=== PATIENT | female | born 1960 | race Caucasian/White ===

== ENCOUNTER 2017-01-29 08:50 | Day surgery (SDC) | payer BC ==
--- OUTSIDE RECORDS SUMMARY | 2017-01-29 08:54 | XMS REPORT | Continuity of Care Document ---
:1960 Author Organization [facility] ([facility]) Address [address] [place] [address] Phone [phone] Care Team Providers Name Role Phone Catarino Pearson Primary Care Provider [phone] Source Comments This disclosure is being made pursuant to the Care Everywhere program, applicable federal and state laws, and may not contain all informaitonavailable regarding this patient.[facility] ([facility]) Active Allergies and Adverse Reactions Allergen Noted Date Severity Reactions Comments Iodinated Contrast Media - Oral And Iv Dye 08/06/2015 Unknown Metformin 08/06/2015 Unknown Penicillins 08/06/2015 Unknown Current Medications Prescription Sig. Disp. Refills Start Date End Date Status levothyroxine 75 mcg Take 75 mcg by Active tablet mouth daily glimepiride 4 mg tablet Take 4 mg by mouth Active Every morning cholecalciferol (VITAMIN Take 1,000 Units Active D3) 1,000 unit tablet by mouth daily HYDROcodone-acetaminophen Take 1 tablet by Active 7.5-325 mg per tablet mouth every 6 hours as needed Active Problems No known active problems Social History Tobacco Use Types Packs/Day Years Used Date Current Every Day Smoker Cigarettes 0.5 20 Smokeless Tobacco: Never Used Tobacco Cessation:Counseling Given: Yes Comments: Alcohol Use Drinks/Week oz/Week Comments Yes Last Filed Vital Signs Vital Sign Reading Time Taken Blood Pressure 132/60 08/06/2015 1:00 PM CDT Pulse 103 08/06/2015 1:00 PM CDT Temperature 36.3 C (97.3 F) 08/06/2015 1:00 PM CDT Respiratory Rate - - Height 1.626 m (5' 4") 08/06/2015 1:00 PM CDT Weight 118 kg (260 lb 2.3 oz) 08/06/2015 1:00 PM CDT Body Mass Index 44.63 08/06/2015 1:00 PM CDT Oxygen Saturation - - Plan of Care Health Maintenance Due Date Last Done Comments HCV Screening 1960 Hepatitis B Vaccine (1 of 3 - Primary Series) 1960 Tdap Vaccine 1970 Lipid Disorder Screening 1977 MMR Vaccine 1977 Td Vaccine 1977 Pneumococcal Vaccine (1 of 1 - PPSV23) 1978 Cervical Cancer Screening 1989 Mammogram 1999 Colonoscopy 02/07/2009 Influenza Vaccine: Seasonal (#1) 05/26/2016 Results from Last 3 Months Not on file
--- NOTE | 2017-01-29 09:29 | OR ---
Anesthesia Pre Procedure Eval Date of Service: 01/29/17 Pre Procedure Evaluation: Last Vital Signs Temp 35.7 C L 01/29/17 09:07 Pulse 88 01/29/17 09:07 Resp 18 01/29/17 09:07 BP 146/78 01/29/17 09:07 Pulse Ox 95 01/29/17 09:07 O2 Oxygen Delivery Method Room Air Anesthesia Pre Procedure Evaluation DATE: 01/29/2017 TIME: 07 20 INDICATIONS: Neurologic changes, multiple sclerosis PAST MEDICAL HISTORY: 4 years history of neurologic changes and changes on radiographic imaging EXAM: Heart S1-S2 regular; lungs clear bilaterally ASSESSMENT OF MEDICAL STATUS: The patient is a great fear of pain and also has low back pain issues. The procedure and risks were explained, she does understand and accepts procedure. PLANNED PROCEDURE: Diagnostic lumbar puncture Home Medications: HOME MEDICATIONS Lidocaine [Lidoderm 5%] 1 patch TP DAILY 07/28/13 [Last Taken 01/28/17] Glimepiride [Amaryl] 4 mg PO BID 12/30/13 [Last Taken 01/28/17] Blood-Glucose Meter [Blood Glucose Monitoring] 1 each MC DAILY 01/28/17 [Last Taken 01/28/17] Cholecalciferol (Vitamin D3) [Vitamin D3] 5,000 unit PO DAILY 01/28/17 [Last Taken 01/28/17] HYDROcodone/ACETAMINOPHEN [Hydrocodon-Acetaminophn 10-325] 1 tab PO Q4H PRN 03/11 [Last Taken 01/28/17] Levothyroxine Sodium [Synthroid] 75 mcg PO DAILY 01/28/17 [Last Taken 01/28/17] Multivitamins [Multivitamin Carlos] 1 cap PO DAILY 01/28/17 [Last Taken 01/28/17 ] Vitamin E 400 unit PO DAILY 01/28/17 [Last Taken 01/28/17]
[2017-01-29] MEDS ORDERED: RINGERS SOLUTION,LACTATED 1,000 ML IV ONE (10:20)
--- NOTE | 2017-01-29 11:05 | OR ---
Anesthesia Procedure Note - Anesthesia Procedure Note Date of Service: 01/29/17 Narrative: Vital Signs - Last Taken Temp 35.7 C L 01/29/17 09:07 Pulse 88 01/29/17 09:07 Resp 18 01/29/17 09:07 BP 146/78 01/29/17 09:07 Pulse Ox 95 01/29/17 09:07 O2 Oxygen Delivery Method Room Air 01/29/17 10:54 ANESTHESIA PROCEDURE NOTE Date of Procedure: 01/29/2017 Time of procedure: . Performed by: Brennan Atkins CRNA, PARKING METER ATTENDANT, MSN [employer] Machine Set Up Operator: Elise Driscoll RN. Preprocedure diagnosis: Fatigue, neurologic changes, multiple sclerosis. Post procedure diagnosis: Same. Procedure: Lumbar Puncture L4 5. Indications: Fatigue. Findings: See below. Details of the procedure: Due to the patients anatomy she was placed in the sitting position with a stool under her feet and the back was prepped with DuraPrep apparent midline was identified at the L3 4 region. Local anesthesia was injected and the spinal area was approached with a 22-gauge Gomes needle. On what appeared to be an appropriate approach the patient felt discomfort to the left and then to the right. The L4 5 area was then attempted with the same general result. The patient was quite anxious at this point and all options were discussed with her including the use of fluoroscopy, sedation, or deferring the procedure. The patient did agree at this point to proceed with sedation. As such a #22-gauge IV was initiated in her right hand with lactated Ringer's at the TK O. Fentanyl and Versed totaling 100 g of fentanyl and 5 mg of Versed was given intravenously with good insight and lysis the patient was then again placed in the sitting position her back was reprepped with DuraPrep and the L4 5 area was approached using a 22-gauge Gomes needle. At this point using a full length of the needle CSF was contacted, and she was placed in a right lateral position. Clear CSF returned, the opening pressure measured 26.2 cm of water pressure, 4 vials of CSF were harvested. The closing pressure measured 24.4 cm of water pressure and the spinal needle was then removed and a Band-Aid was applied. EBL: Minimal. Fluids: 300ml of LR. Specimen:3vials of clear CSF2 milliliters each, 1 vial of CSF with 7 mL. Post procedure condition: The patient tolerated the procedure well. No complications were noted. Thank you for this consultation. Brennan Atkins CRNA, PARKING METER ATTENDANT, MSN
[2017-01-29 11:32] LABS: CSF Appearance Clear (CLEAR); CSF Color Colorless (COLORLESS); CSF RBC 110 /uL (0-10)
[2017-01-29 11:36] LABS: CSF Appearance Clear (CLEAR); CSF Color Colorless (COLORLESS); CSF RBC 70 /uL (0-10); CSF WBC 0 /uL (0-10)
[2017-01-29 11:36] LABS: CSF WBC 0 /uL (0-10)
[2017-01-29 11:59] VITALS: BP 135/83
[2017-01-30 16:34] LABS: Cryptococcal Antigen Source CEREBROSPINAL FLUID
[2017-01-30 20:49] LABS: Cryptococcal Antigen Screen NOT DETECTED (NOT DETECTED)
[2017-01-30 20:49] LABS: WNV IgG Ab <1.30 index
[2017-02-02 18:54] LABS: HSV 1 DNA NOT DETECTED
[2017-02-02 18:58] LABS: ACE 68 U/L (9-67); CSF Oligoclonal Bands NO BANDS (NO BANDS); HSV 2 DNA NOT DETECTED
[2017-02-05 00:11] LABS: CSF IgG Synthesis -2.9 mg/24 h (-9.9 TO +3.3)
[2017-02-05 06:10] LABS: CSF IgG Index 0.47
== END 2017-01-29 08:51 | disposition home or self-care (01) ==
LOC: AMB 08:50
PROC: 009U3ZX Drainage of Spinal Canal, Percutaneous Approach, Diagnostic (ICD-10-PCS; principal; 2017-01-29 09:30)
DX: G35 Multiple sclerosis (principal); R53.83 Other fatigue

== ENCOUNTER 2017-02-21 11:06 | Emergency (ER) | payer BC ==
--- OUTSIDE RECORDS SUMMARY | 2017-02-21 11:18 | XMS REPORT | Continuity of Care Document ---
:1960 Author Organization [facility] ([facility]) Address [address] [place] [address] Phone [phone] Care Team Providers Name Role Phone Catarino Pearson Primary Care Provider [phone] Source Comments This disclosure is being made pursuant to the Care Everywhere program, applicable federal and state laws, and may not contain all informaitonavailable regarding this patient.[facility] ([facility]) Active Allergies and Adverse Reactions Allergen [...]
[2017-02-21 11:22] LABS: Urine Bilirubin Negative (NEGATIVE); Urine Blood 25 /ul (NEGATIVE); Urine Ketone Negative (NEGATIVE); Urine Nitrite Negative (NEGATIVE); Urine Protein Negative (NEGATIVE); Urine Urobilinogen Normal (NORMAL); Urine pH 5.5 pH (5.0-7.0)
--- NOTE | 2017-02-21 11:24 | ERNOTE ---
Back Pain ER HPI Time Seen by Provider: 02/21/17 11:09 Source: patient Immunizations: IMMUNIZATION HX Immunizations Up to Date Yes History of Influenza Vaccine No Hx Pneumococcal Vaccination No Allergies/Adverse Reactions: Allergies Penicillins Allergy (Intermediate, Verified 02/21/17 11:13) upset stomach, rash, welts iopamidol [From Isovue-M] Allergy (Mild, Verified 02/21/17 11:13) Hives Iodinated Contrast Media - Oral and [Iodinated Contrast Media - IV Dye] Adverse Reaction (Mild, Verified 02/21/17 11:13) rash metformin Adverse Reaction (Mild, Verified 02/21/17 11:13) Diarrhea Home Medications: HOME MEDICATIONS Lidocaine [Lidoderm 5%] 1 patch TP DAILY 07/28/13 [Last Taken 01/28/17] Glimepiride [Amaryl] 4 mg PO BID 12/30/13 [Last Taken 01/28/17] Blood-Glucose Meter [Blood Glucose Monitoring] 1 each MC DAILY 01/28/17 [Last Taken 01/28/17] Cholecalciferol (Vitamin D3) [Vitamin D3] 5,000 unit PO DAILY 01/28/17 [Last Taken 01/28/17] HYDROcodone/ACETAMINOPHEN [Hydrocodon-Acetaminophn 10-325] 1 tab PO Q4H PRN 03/11 [Last Taken 01/28/17] Levothyroxine Sodium [Synthroid] 75 mcg PO DAILY 01/28/17 [Last Taken 01/28/17] Multivitamins [Multivitamin Carlos] 1 cap PO DAILY 01/28/17 [Last Taken 01/28/17 ] Vitamin E 400 unit PO DAILY 01/28/17 [Last Taken 01/28/17] Ondansetron [Zofran Odt] 4 mg PO Q6H PRN #20 tab 02/21/17 [Last Taken Unknown] Narrative: Patient presents with right flank and right upper quadrant abdominal pain. The patient states that this pain has been ongoing for quite some time. She further states that there appears to be a component of eating fried food and fatty food as instigating part of the pain. Patient denies any nausea or vomiting. Timing: Reports: intermittent Quality/Severity: Reports: moderate, aching, cramping Location of pain: Reports: other - right flank and RUQ Review of Systems - Review of Systems Constitutional: Present: See HPI EYE: Present: no symptoms reported ENT: Present: no symptoms reported Respiratory: Present: no symptoms reported Cardiology: Present: no symptoms reported Gastrointestinal/Abdominal: Present: abdominal pain Genitourinary: Present: other - right flank Musculoskeletal: Present: no symptoms reported Skin: Present: no symptoms reported Neurological: Present: no symptoms reported Endocrine: Present: no symptoms reported Hematologic/Lymphatic: Present: no symptoms reported Psych: Present: no symptoms reported - Patient's Past Medical History Patient History - Medical: Chronic Pain, Diabetes Type 2, Hypothyroidism, Renal Disease, Renal Failure, Other Patient History - Cardiac/Respiratory: No pertinent hx Patient History - Cancer: No Hx of Cancer Patient History - Surgical Procedures: Other Patient History - Other: None - Family History Mother Family History - Medical: , No pertinent hx Family History - Cardiac/Respiratory: No pertinent hx - Social History Living Situations: alone Abuse History: No History of abuse Psych History: No pertinent hx Smoking Status: Current every day smoker Have you smoked in the past 12 months: Yes Alcohol Use: occasionally Drug Use: none - Immunizations Immunizations Up to Date: Yes Hx Pneumococcal Vaccination: No History of Influenza Vaccine: No Physical Exam - Physical Exam General Appearance: Present: wd/wn, alert, moderate distress Eye Exam: Normal inspection: bilateral, PERRL: bilateral Ears, Nose, Throat: Present: normal ENT inspection, H, normal pharynx Neck: Present: normal inspection, nontender Respiratory: Present: no respiratory distress, normal breath sounds, no accessory muscle use, chest nontender, lungs clear Cardiovascular/Chest: Present: regular rate, rhythm, no murmur, normal peripheral pulses Gastrointestinal/Abdominal: Present: normal bowel sounds, nondistended, soft, no organomegaly, Dorado sign - equivocal Rectal Exam: Present: deferred Back Exam: Present: normal range of motion, CVA tenderness (R) Extremity Exam: Present: normal inspection, non-tender, no edema, normal range of motion Neurological Exam: Present: alert, oriented, normal mood/affect Skin Exam: Present: normal color, warm/dry Lymphatic Exam: Present: no adenopathy ED Progress - Results and Orders Patient's Lab Results:: I have reviewed the patient's lab results. - Vital Signs Patient's Vital Signs:: I have reviewed the patient's vital signs. Vital Signs: Vital Signs 02/21/17 11:09 Temperature 36.1 C L Pulse Rate 88 Respiratory 14 Rate Blood Pressure 165/92 O2 Sat by Pulse 98 Oximetry - CT/Ultrasound CT/Ultrasound Narrative: US results were reviewed and discussed with Dr. Dash - Progress/Reassessment Chief Complaint: Back Pain Plan - Plan Plan: Patient has a known 17% ejection fraction on a gallbladder nuclear study. Patient also has a gallstone that is present as well. I discussed these findings with Dr. Dash and he will see the patient in clinic this week and discuss options. Departure Clinical Impression: Dysfunctional gallbladder Cholelithiases Qualifiers: Cholelithiasis location: gallbladder Cholecystitis presence: without cholecystitis Biliary obstruction: without biliary obstruction Qualified Code(s) : K80.20 - Calculus of gallbladder without cholecystitis without obstruction - Departure Disposition: Home self-care Condition: Good Instructions: Cholelithiasis Referrals: Catarino Pearson MD [Primary Care Provider] - Addy Dash MD [Staff Physician] - Prescriptions: Ondansetron [Zofran Odt] 4 mg PO Q6H PRN #20 tab PRN Reason: Nausea
[2017-02-21 11:26] LABS: Urine Appearance Clear; Urine Color Yellow
[2017-02-21 11:30] LABS: Urine Bacteria None Seen; Urine RBC 0-5 /hpf (0-5); Urine WBC None Seen /hpf (0-5)
[2017-02-21 12:39] LABS: Hematocrit 49.5 % (37.0-47.0); Hemoglobin 17.1 gm/dL (12.5-16.0); Mean Cell Volume 93.6 fl (78-100); Mean Corpuscular Hemoglobin 32.3 pg (27-31); Mean Corpuscular Hgb Conc 34.5 g/dl (32-36); Mean Platelet Volume 12.1 fl (6.0-9.5); Neutrophil % 62.7 % (42-75.0); Platelet Count 210 K/mm3 (150-450); Red Blood Count 5.29 M/mm3 (4.2-5.4); Red Cell Distribution Width 12.9 % (11.5-14.0); White Blood Count 11.2 K/mm3 (4.0-10.5)
[2017-02-21] MEDS ORDERED: KETOROLAC TROMETHAMINE 30 MG/ML VIAL IM ONE (12:45)
[2017-02-21] MEDS ORDERED: KETOROLAC TROMETHAMINE 60 MG/2 ML VIAL IM ONE (12:49)
[2017-02-21 12:52] LABS: Albumin * 3.8 gm/dl (3.4-5.0); Anion Gap 15.5 mmol/L (6.8-13.8); BUN/Creatinine Ratio 17.6 (9.0-21.6); Bilirubin, Total 0.5 mg/dL (0.0-1.1); Ca. Corrected For Albumin 9.5 mg/dL (8.4-10.2); Calcium * 9.7 mg/dL (7.9-10.9); Carbon Dioxide 24.8 mmol/L (24-32.6); Potassium 4.3 mmol/L (3.4-4.6); Total Protein 7.9 gm/dL (6.2-8.2)
[2017-02-21 15:23] VITALS: BP 165/83
== END 2017-02-21 15:10 | disposition home or self-care (01) ==
LOC: ER 11:06
DX: K82.8 Other specified diseases of gallbladder (principal); K80.20 Calculus of gallbladder without cholecystitis without obstruction; F17.210 Nicotine dependence, cigarettes, uncomplicated; E03.9 Hypothyroidism, unspecified; E11.9 Type 2 diabetes mellitus without complications